=== PATIENT | female | born 1955 | race Caucasian/White ===

== ENCOUNTER 2022-09-06 18:28 | Emergency (ER) | payer MEDICARE, MEDICAID, SELFPAY ==
[2022-09-06 18:29] VITALS: BP 211/109; PULSE 99; RESP 16; TEMP 35.7; O2SAT 99; BMI 33.4
--- NOTE | 2022-09-06 18:58 | ED.RN ---
pt was in [facility] overnight last sat for iv atb. pt had bills to pay and had to take care of betzy so left ama . pain to hand with not getting any better. called pcp and was told to come to er. came here because daughter closer.
--- NOTE | 2022-09-06 19:50 | RAD_ITS ---
STUDY: X-RAY - RIGHT HAND REASON FOR EXAM: Female, 67 years old. pain/injury TECHNIQUE: 3 view(s) of the hand. COMPARISON: None. FINDINGS: Normal radiocarpal articulation. Normal distal radioulnar joint. Normal visualized carpal bones. Normal carpal articulations Degenerative changes of the carpometacarpal articulation of the thumb. Normal second through fifth carpometacarpal joints. Normal metacarpi. Normal metacarpophalangeal joint of the thumb. Normal interphalangeal joint of the thumb. Normal proximal and distal phalanges of the thumb. Normal metacarpophalangeal joints of the second through fifth fingers. Normal proximal interphalangeal joints of the second through fifth fingers. Degenerative changes of the DIP joints Normal phalanges of the second through fifth fingers. Diffuse soft tissue swelling of the dorsal hand.. RAD/Hand Min 3 Views IMPRESSION: Soft tissue swelling without evidence for acute fracture or dislocation. Degenerative changes Electronically Signed: Jeffrey Lim MD at 20:28 EDT ,
[2022-09-06 20:04] LABS: Absolute Lymphocyte Count 3.41 X10^3/uL (0.83-4.51); Absolute Neutrophil Count 4.8 X10^3/uL (2.0-7.7); Basophil# 0.03 X10^3/uL; Basophil% 0.3 % (0-1); Eosinophils% 1.1 % (0-5); Hematocrit 42.8 % (37-47); Hemoglobin 13.9 g/dL (12.0-15.0); Lymphocyte # 3.41 X10^3/ul (0.83-4.51); Lymphocyte % 35.8 % (19-41); Mean Corp Hgb Conc 32.5 g/dL (32-36); Mean Corpuscular Hgb 32.2 pg (27.0-32.0); Mean Corpuscular Volume 99.1 fL (81-99); Mean Platelet Vol. 10.9 fl (6.2-12.0); Monocyte# 1.14 X10^3/uL; NRBC Flagged by Analyzer 0 % (0-5); Neutrophil # 4.81 X10^3/uL (2.7-7.7); Neutrophil % 50.5 % (47-70); Platelet Count 263 K/mm3 (150-450); RBC Distribution Width CV 13.1 % (11.6-14.6); RBC Distribution Width SD 47.7 fl (35.1-43.9); Red Blood Count 4.32 M/mm3 (4.2-5.4); White Blood Count 9.5 K/mm3 (4.4-11.0)
[2022-09-06 20:21] LABS: Anion Gap 6 (5-15); BUN 14 mg/dL (7-18); BUN/Creat Ratio 12.2 RATIO (10-20); Calcium,Total 8.9 mg/dL (8.5-10.1); Chloride 107 mmol/L (98-107); Creatinine, Serum 1.15 mg/dL (0.55-1.02); EST Glomerular Filtration Rate 50 mL/min (>60); Est Glom Filt Rate - Afr Amer 60 mL/min (>60); Estimated Creatinine Clearance 33.63 ml/min; Glucose 158 mg/dL (74-106); Potassium 3.3 mmol/L (3.5-5.1); Sodium Level 137 mmol/L (136-145)
--- NOTE | 2022-09-06 20:43 | EX.ED.UPPERE ---
HPI History of Present Illness HPI Narrative: Patient presents with right hand redness and swelling that has been getting worse over the past 5 days. Patient states her cat scratched her on her right hand. Patient states the redness is gotten worse and then started to get a little bit better. Patient describes her pain as burning. Patient states her pain is worse with movement. Patient states it is better with resting it and with an ice pack. Patient denies any paresthesias or weakness. Patient states her last tetanus was up-to-date. Chief Complaint: Bite Informant: patient Occured/Mechanism Comment: Cat scratch/bite Onset/Context/Timing Onset: Days (5) Context: Sudden Onset Timing: Continuous Quality of Pain: Burning Location: Right hand Worsened by: Movement Relieved by: Rest, ice pack Associated Symptoms Associated Symptoms: Negative for Parasthesia, Weakness or Loss of Funtion PFSH PFSH Medical History (Updated 09/06/22 @ 20:[address] Bimal Robledo DO) Carpal tunnel syndrome Chronic back pain COPD (chronic obstructive pulmonary disease) GERD (gastroesophageal reflux disease) Panic disorder Home Medications amoxicillin 875 mg-potassium clavulanate 125 mg tablet 875 mg PO Q12H #20 TABLETS 09/06/22 [Rx Last Taken Unknown] Allergy/AdvReac Type Severity Reaction Status Date / Time fentanyl Allergy Other Verified 09/06/22 18:32 morphine Allergy Other Verified 09/06/22 18:32 ANTIDEPRESSANTS Allergy NEEDS Uncoded 09/06/22 18:32 FOLLOW-UP Surgical History (Updated 09/06/22 @ 20:[address] Bimal Robledo DO) Hx of cholecystectomy Hx of tonsillectomy Hx of tubal ligation Status post ORIF of fracture of ankle Social History Smoking Status: Current every day smoker tobacco type: cigarettes ROS ROS ED Constitutional Constitutional ED: Denies chills or fever(s) Eyes Eyes: Denies blurry vision or change in vision ENT ENT ED: Denies rhinorrhea or sore throat Cardiovascular Cardiovascular: Denies chest pain or palpitations Respiratory/Chest Respiratory/Chest: Denies cough or dyspnea Gastrointestinal Gastrointestinal: Denies nausea or vomiting Genitourinary Genitourinary ED: Denies dysuria or hematuria Musculoskeletal Musculoskeletal: Reports back pain and neck pain Integumentary Denies abscess or rash Neurologic Neurologic: Denies headache(s) or weakness Allergic/Immunologic Allergic/Immunologic ED: Denies mouth swelling or urticaria EXAM Physical Exam Const Vital Signs: 09/06/22 18:29 Temperature 96.2 F L Temperature Source Temporal Pulse Rate 99 Respiratory Rate 16 Blood Pressure 211/109 H Blood Pressure Mean 143 Pulse Ox 99 Oxygen Delivery Method Room Air Positive well nourished and well developed General Appearance ED: well developed and NAD HEENT Reports moist mucous membranes Eyes PERRL and EOMs intact bilaterally Neck full ROM and supple Extremity Extremity Narrative: There is edema and erythema over the dorsal aspect of the right hand and wrist area. There is mild warmth. There is no fluctuance or evidence of any abscess. There are small healing puncture wounds noted. There is no bleeding noted. Radial pulses are equal bilaterally. Sensation was intact to light touch in the radial, median, and ulnar areas. Strength is 5/5 in the radial, median, and ulnar areas. There is no pain with short arc range of motion. There is no evidence of any joint infection. Neuro oriented x3, CN's II-XII intact bilaterally, moves all extremities, no focal motor deficits and no sensory deficits noted Sensorium / Orientation: alert Motor Exam: strength 5/5 throughout Psych mental status grossly normal MDM MDM MDM Narrative Medical decision making narrative: Differential diagnosis includes cellulitis, cat bite, and osteomyelitis. CBC will be obtained to assess for leukocytosis and anemia. Basic metabolic profile will be obtained to assess for electrolyte abnormality and renal function. Blood cultures will be obtained to assess for sepsis. X-rays of the right hand will be obtained to assess for osteomyelitis. Lab Data Attestation: I reviewed the patient's lab results. Lab results narrative: CBC was reviewed and was within normal limits. Basic metabolic profile was reviewed and was essentially within normal limits. Labs: Laboratory Results - last 24 hr 09/06/22 09/06/22 19:30 19:30 WBC 9.5 RBC 4.32 Hgb 13.9 Hct 42.8 MCV 99.1 H MCH 32.2 H MCHC 32.5 RDW Std Deviation 47.7 H RDW Coeff of Sabrina 13.1 Plt Count 263 MPV 10.9 Immature Gran % (Auto) 0.300 Neut % (Auto) 50.5 Lymph % (Auto) 35.8 [place] % (Auto) 12.0 H Eos % (Auto) 1.1 Baso % (Auto) 0.3 Absolute Neuts (auto) 4.8 Absolute Lymphs (auto) 3.41 Nucleated RBC % 0 Sodium 137 Potassium 3.3 L Chloride 107 Carbon Dioxide 24.0 Anion Gap 6 BUN 14 Creatinine 1.15 H Estim Creat Clear Calc 33.63 Est GFR (MDRD) Af Amer 60 Est GFR (MDRD) Non-Af 50 L BUN/Creatinine Ratio 12.2 Glucose 158 H Calcium 8.9 Radiography Diagnostic Testing: Clinical Impression(s) from Imaging Studies Hand X-Ray 09/06/22 19:50 IMPRESSION: Soft tissue swelling without evidence for acute fracture or dislocation. Degenerative changes Electronically Signed: Jeffrey Lim MD at 20:28 EDT , X-rays of the right hand were obtained. There are 3 views. On my independent interpretation, there is no acute fracture or dislocation. There is soft tissue swelling noted. There is no evidence of osteomyelitis. Radiologist also interpreted the x-rays and agrees. Treatment and Re-Evaluation Narrative: Patient was given a dose of Unasyn here. Patient was advised of her findings. Patient was given a prescription for Augmentin. Patient was instructed to follow-up with her primary care physician in 5 to 7 days. Patient was instructed to return if worse in any way. Patient understood and was agreeable with the plan. All questions were answered. Discharge Plan Triage Chief Complaint: Bite ED Provider: Bimal Robledo Dx/Rx/DC Orders Clinical Impression: Cellulitis of hand, right, Cat bite of hand Instructions: ED Cat Bite, ED Cellulitis Prescriptions: New amoxicillin-pot clavulanate [amoxicillin-pot clavulanate] 875-125 mg tablet 875 mg PO Q12H Qty: 20 0RF Primary Care Provider: Zeenat Ballesteros Referrals: Zeenat Ballesteros DO [Primary Care Provider] - 3-5 Days Disposition Disposition: Home, Self Care
[2022-09-06 20:54] VITALS: BP 192/96; PULSE 74; RESP 16; TEMP 36.9; O2SAT 99
== END 2022-09-06 21:36 | disposition home or self-care (01) ==
PROVIDERS: Emergency Provider Emergency Medicine; PCP Family Medicine; Visit Provider Emergency Medicine
DX: L03.113 Cellulitis of right upper limb (principal); J44.9 Chronic obstructive pulmonary disease, unspecified; S61.431A Puncture wound without foreign body of right hand, initial encounter; W55.03XA Scratched by cat, initial encounter; F17.210 Nicotine dependence, cigarettes, uncomplicated
CPT/HCPCS: 73130; 80048; 85025; 87040; 96365; 99283; J7030; A4216; J0295